=== PATIENT | female | born 1990 | race Caucasian/White ===

== ENCOUNTER 2016-08-27 05:22 | Observation (INO) | payer MEDICAID ==
[2016-08-27] MEDS ORDERED: hydrOXYzine IM 50 MG/ML VIAL IM PRN (05:45)
[2016-08-27] MEDS ORDERED: IV RINGERS,LACTATED 1000ML 1,000 ML IV SCH (06:00)
== END 2016-08-27 07:50 | disposition short-term general hospital (02) ==
LOC: 3 SO LND 05:22
PROVIDERS: ADMIT Obstetrics & Gynecology; ATTEND Obstetrics & Gynecology
DX: O21.2 Late vomiting of pregnancy (principal); O26.892 Other specified pregnancy related conditions, second trimester; R11.0 Nausea; R10.9 Unspecified abdominal pain; Z3A.24 24 weeks gestation of pregnancy
CPT/HCPCS: 96372; G0378; G0379; J3410

== ENCOUNTER 2016-08-27 07:47 | Inpatient (IN) | payer MEDICAID ==
[~2016-08-27] VITALS: Ht 172.7 cm; Wt 65.8 kg
--- NOTE | 2016-08-27 08:23 | PHYS DOC ---
Past Medical History Past Medical History: No Pertinent History Past Surgical History: No Surgical History Alcohol Use: None Drug Use: Heroin, Methadone Social History Narrative: WITHDRAWL Adult General Chief Complaint Chief Complaint: VOMITING IN HPI HPI Patient is a 25 year old female who presents with complaint of nausea, vomiting , abdominal and back pain. Patient states that she has had symptoms for the past 2 days. Patient states that she is withdrawing from heroin. Patient's last use of heroin was 2 days ago. Patient states that she is attempting to quit as she is currently 7 months . Patient is . Patient states that she has been in [place] for the past several months but just moved back 2 days ago. Patient has had no care during her . Patient states that she is having generalized abdominal and back pain which she rates as 7 out of 10. Patient states that this is typical when she has withdrawal symptoms. Patient states that she has been on methadone therapy in the past for treatment. Patient is having uncontrolled nausea and vomiting and has not been able to keep anything solid or liquid down. Patient has taken no medications for her symptoms. The patient initially presented to labor and delivery here [facility] where she was evaluated and had normal heart tones. The patient was referred to the emergency department for further management. Review of Systems Review of Systems Constitutional: Denies fever or chills [] Eyes: Denies change in visual acuity, redness, or eye pain [] HENT: Denies nasal congestion or sore throat [] Respiratory: Denies cough or shortness of breath [] Cardiovascular: Denies chest pain or edema [] GI: Abdominal pain, nausea, vomiting [] : Denies dysuria or hematuria [] Musculoskeletal: Back pain [] Integument: Denies rash or skin lesions [] Neurologic: Denies headache, focal weakness or sensory changes [] Current Medications Current Medications Current Medications Medications (Trade) Dose Ordered Sig/Bhupinder Start Time Stop Time Status Last Admin Dose Admin Clonidine HCl (Catapres) 0.1 mg 1X ONCE 08/27/16 08:30 08/27/16 08:31 DC 08/27/16 08:57 0.1 MG Ondansetron HCl (Zofran) 4 mg PRN Q8HRS PRN 08/27/16 09:45 08/28/16 09:44 UNV Sodium Chloride 1,000 ml @ 150 mls/hr [id number] 08/27/16 09:39 08/28/16 09:38 UNV Allergies Allergies Allergies Coded Allergies Type Severity Reaction Last Updated Verified No Known Drug Allergies 08/27/16 No Physical Exam Physical Exam Constitutional: Alert, afebrile, appears ill. [] HENT: Normocephalic, atraumatic, bilateral external ears normal, oropharynx moist, no oral exudates, nose normal. [] Eyes: PERRLA, EOMI, conjunctiva normal, no discharge. [] Neck: Normal range of motion, no tenderness, supple, no stridor. [] Cardiovascular:Heart rate regular rhythm, no murmur [] Lungs & Thorax: Bilateral breath sounds clear to auscultation [] Abdomen: Bowel sounds normal, soft, nonlocalizing tenderness to palpation in all 4 quadrants, no guarding or rebound tenderness, no masses, no pulsatile masses. [] Skin: Warm, dry, no erythema, no rash. [] Back: No midline tenderness, bilateral paraspinous muscle tenderness to palpation, no flank ecchymosis. [] Extremities: No tenderness, no cyanosis, no clubbing, ROM intact, no edema. [] Neurologic: Alert and oriented X 3, normal motor function, normal sensory function, no focal deficits noted. [] Current Patient Data Vital Signs Vital Signs Date Time Temp Pulse Resp B/P (MAP) Pulse Ox O2 Delivery O2 Flow Rate FiO2 08/27/16 09:00 63 20 122/72 (89) 100 Room Air 08/27/16 07:55 98.4 98.4 Lab Values Laboratory Tests Test 08/27/16 08:25 White Blood Count 14.9 x10^3/uL (4.0-11.0) H Red Blood Count 4.01 x10^6/uL (3.50-5.40) Hemoglobin 12.6 g/dL (12.0-15.5) Hematocrit 37.5 % (36.0-47.0) Mean Corpuscular Volume 94 fL (79-100) Mean Corpuscular Hemoglobin 31 pg (25-35) Mean Corpuscular Hemoglobin Concent 34 g/dL (31-37) Red Cell Distribution Width 13.5 % (11.5-14.5) Platelet Count 287 x10^3/uL (140-400) Neutrophils (%) (Auto) 93 % (31-73) H Lymphocytes (%) (Auto) 5 % (24-48) L Monocytes (%) (Auto) 1 % (0-9) Eosinophils (%) (Auto) 0 % (0-3) Basophils (%) (Auto) 1 % (0-3) Neutrophils # (Auto) 13.9 x10^3uL (1.8-7.7) H Lymphocytes # (Auto) 0.8 x10^3/uL (1.0-4.8) L Monocytes # (Auto) 0.2 x10^3/uL (0.0-1.1) Eosinophils # (Auto) 0.0 x10^3/uL (0.0-0.7) Basophils # (Auto) 0.1 x10^3/uL (0.0-0.2) Platelet Estimate Pending Sodium Level 137 mmol/L (136-145) Potassium Level 3.1 mmol/L (3.5-5.1) L Chloride Level 100 mmol/L (98-107) Carbon Dioxide Level 25 mmol/L (21-32) Anion Gap 12 (6-14) Blood Urea Nitrogen 6 mg/dL (7-20) L Creatinine 0.6 mg/dL (0.6-1.0) Estimated GFR (Cockcroft-Gault) 147.4 BUN/Creatinine Ratio 10 (6-20) Glucose Level 136 mg/dL (70-99) H Calcium Level 8.9 mg/dL (8.5-10.1) Total Bilirubin 0.6 mg/dL (0.2-1.0) Aspartate Amino Transferase (AST) 19 U/L (15-37) Alanine Aminotransferase (ALT) 22 U/L (14-59) Alkaline Phosphatase 84 U/L (46-116) Total Protein 7.4 g/dL (6.4-8.2) Albumin 3.1 g/dL (3.4-5.0) L Albumin/Globulin Ratio 0.7 (1.0-1.7) L Laboratory Tests 08/27/16 08:25 Laboratory Tests 08/27/16 08:25 EKG EKG Rhythm strip interpretation by me: Heart rate 69, sinus rhythm, no ectopy Radiology/Procedures Radiology/Procedures Not performed [] Course & Med Decision Making Course & Med Decision Making Pertinent Labs and Imaging studies reviewed. (See chart for details) Patient was given clonidine, Zofran, and IV fluids. On reevaluation, patient states her symptoms have not improved and patient is unable to tolerate any oral intake at this time. Due to current condition, the patient will need treatment with IV fluids for rehydration and continued symptomatic control. I spoke with Dr. Hensley of [facility] who agreed to admit patient under observation status for continued IV fluids and symptomatic control. I also consulted Dr. Garcia of internal medicine who agreed to evaluate patient in hospital to assess for need for methadone treatment. Dragon Disclaimer Dragon Disclaimer This electronic medical record was generated, in whole or in part, using a voice recognition dictation system. Departure Departure Impression: Primary Impression: Intractable nausea and vomiting Disposition: ADMITTED INPATIENT Admitting Physician: Other Condition: STABLE Referrals: NO PCP (PCP) Problem Qualifiers Primary Impression: Intractable nausea and vomiting Vomiting type: unspecified Qualified Codes: R11.2 - Nausea with vomiting, unspecified TG MONTES MD August 27, 2016 08:23
[2016-08-27] MEDS ORDERED: cloNIDine HCL 0.1 MG TABLET PO ONE (08:30)
[2016-08-27] MEDS ORDERED: IV NORMAL SALINE 1000ML BAG 1,000 ML IV SCH ×2 (08:30→10:00)
[2016-08-27] MEDS ORDERED: ONDANSETRON PF 4 MG/2 ML VIAL. IV ONE (08:30)
[2016-08-27 08:35] LABS: BASO # 0.1 x10^3/uL (0.0-0.2); BASO % 1 % (0-3); EOS % 0 % (0-3); HEMATOCRIT 37.5 % (36.0-47.0); HEMOGLOBIN 12.6 g/dL (12.0-15.5); LYMPH # 0.8 x10^3/uL (1.0-4.8); LYMPH % 5 % (24-48); MEAN CORPUSCULAR HEMOGLOBIN 31 pg (25-35); MEAN CORPUSCULAR HGB CONC 34 g/dL (31-37); MEAN CORPUSCULAR VOLUME 94 fL (79-100); MONO % 1 % (0-9); NEUT % 93 % (31-73); PLATELET COUNT 287 x10^3/uL (140-400); RED BLOOD COUNT 4.01 x10^6/uL (3.50-5.40); RED CELL DISTRIBUTION WIDTH 13.5 % (11.5-14.5); WHITE BLOOD COUNT 14.9 x10^3/uL (4.0-11.0)
[2016-08-27 08:44] LABS: CALCIUM 8.9 mg/dL (8.5-10.1); CREATININE 0.6 mg/dL (0.6-1.0); GFR 147.4; POTASSIUM 3.1 mmol/L (3.5-5.1)
[2016-08-27 08:50] LABS: ALBUMIN 3.1 g/dL (3.4-5.0); ALBUMIN/GLOBULIN RATIO 0.7 (1.0-1.7); TOTAL BILIRUBIN 0.6 mg/dL (0.2-1.0); TOTAL PROTEIN 7.4 g/dL (6.4-8.2)
[2016-08-27] MEDS ORDERED: ONDANSETRON PF 4 MG/2 ML VIAL. IV PRN (09:45)
[2016-08-27 09:58] LABS: PLT ESTIMATE ADEQUATE (ADEQUATE)
[2016-08-27] MEDS ORDERED: METHADONE 10 MG TABLET. PO SCH (10:00)
--- NOTE | 2016-08-27 10:14 | ACF ---
Admission Forms Criteria VOMITING Clinical Indications for Admission to Inpatient Care ( Place 'X' for any and all applicable criteria): Admission is indicated for 1 or more of the following(1)(2)(3): [ ]I. Complete or partial gastrointestinal obstruction [ ]II. Vomiting due to significant metabolic derangement (eg, severe hypercalcemia, diabetic ketoacidosis) [ ]III. Other cause of vomiting requiring hospitalization (eg, poisoning, increased intracranial pressure) [X]IV. Inpatient admission required rather than observation care because of 1 or more of the following [ ]i) Hemodynamic instability [X]ii) Vomiting that is severe or persistent indicated by 1 or more of the following 1) Numerous episodes of vomiting in past 24hours (eg, every 1 to 2 hours) 2) Suggests severe underlying cause or complication (eg , projectile, feculent, bilious, coffee ground, bloody) 3) Appropriate antiemetic treatment (eg, repeated oral or parenteral dosing) does not sufficiently reduce vomiting within 12 to 24 hours of treatment X 4) Treatment regimen necessary to adequately control vomiting requires inpatient level of care (eg, not immediately available in outpatient setting) [ ]iii) Severe electrolyte abnormalities requiring inpatient care [ ]iv) Severe pain requiring acute inpatient management( Continuous or frequent (eg, every 2 to 4 hours) parental analgesics or analgesic regimen that can only be performed or initiated in inpatient setting) [ ]v) High fever or infection requiring inpatient admission as indicated by 1 or more of the following(7)(8): [ ]1) Appropriate outpatient or observation care antimicrobial treatment unavailable, not effective, or not feasible [ ]2) Documented bacteremia [ ]3) Temp >104.9 degrees F (40.5 degrees C) (oral) [ ]4) Temp >103.1 degrees F (39.5 C) (oral) or <96.8 degrees F (36 C) (rectal) that does not respond to all emergency treatment measures [ ]vi) Acute renal failure [ ]vii) IV fluid required rather than oral rehydration to replace significant on going losses (greater than 3 L/m2 per day) [ ]viii) Parenteral nutrition regimen that must be implemented on inpatient basis [ ]ix) Other condition, treatment or monitoring requiring inpatient admission Extended stay beyond goal length of stay may be needed for(1)(4): [ ]a) Severe vomiting [ ]b) Persistent vomiting, vital sign changes, severe electrolyte imbalance , or diagnosed cause of vomiting that requires continued hospitalization (eg, gastrointestinal obstruction , increased intracranial pressure) [ ]c) Surgery to treat identified causes of vomiting (eg, bowel obstruction , intracranial process) [ ]d) Comorbid illness that requires inpatient care (eg, acute heart failure , renal failure) [ ]e) Need for inpatient endoscopy The original [employer] content created by [employer] has been revised. The portions of the content which have been revised are identified through the use of italic text or in bold, and [facility] has neither reviewed nor approved the modified material. All other unmodified content is copyright [employer]. Please see references footnoted in the original [employer] edition 2016 Admission Criteria Met?: Yes LIAM LEWIS August 27, 2016 10:14
[2016-08-27] MEDS: IV DEXTROSE 5%-LACT RINGERS 1,000 ML IV SCH ×2 (11:20→19:25)
[2016-08-27] MEDS ORDERED: POTASSIUM CHLORIDE 20 MEQ TABLET.ER. PO ONE (11:30)
--- NOTE | 2016-08-27 12:13 | CONS ---
DATE OF CONSULTATION: 08/27/2016 CHIEF COMPLAINT: 1. Heroin withdrawal. 2. A 24-week . HISTORY OF PRESENT ILLNESS: The patient is a pleasant 25-year-old relatively healthy lady, who apparently lives in a hotel with her boyfriend. She is addicted to heroin. She states that she last used heroin a couple of days ago. She apparently just ____ got out of intermediate as well. Basically, she was in our Emergency Room with severe withdrawal. She is vomiting. She is depressed, shaking, and just appears very sick. I have discussed the case with the ER physician. Apparently, Dr. Ward is going to admit the patient. We are going to consult her to assist with this withdrawal situation. I did however call the pharmacy several times, who has agreed on a dose of 20 mg p.o. b.i.d. because the patient has been on that in the past from a Meth[facility]one Clinic. After that, I am going to go ahead and consult Dr. Clyde Awan [facility] to help us with this difficult situation. PAST MEDICAL HISTORY: Heroin abuse. ALLERGIES: None. FAMILY HISTORY: Hypertension. SOCIAL HISTORY: She lives at a hotel with her boyfriend. She smokes. I do not think she drinks much, but she is addicted to heroin. MEDICATIONS: Reviewed, please see the MRAD. REVIEW OF SYSTEMS: GENERAL: No history of weight change, weakness or fevers. SKIN: No bruising, hair changes or rashes. EYES: No blurred, double or loss of vision. NOSE AND THROAT: No history of nosebleeds, hoarseness or sore throat. HEART: No history of palpitations, chest pain or shortness of breath on exertion. LUNGS: Denies cough, hemoptysis, wheezing or shortness of breath. GASTROINTESTINAL: She complains of abdominal pain and nausea. GENITOURINARY: No history of frequency, urgency, hesitancy or nocturia. NEUROLOGIC: Denies history of numbness, tingling, tremor or weakness. PSYCHIATRIC: No history of panic or anxiety. She complains of depression. ENDOCRINE: No history of heat or cold intolerance, polyuria or polydipsia. EXTREMITIES: Denies muscle weakness, joint pain, pain on walking or stiffness. PHYSICAL EXAMINATION: VITAL SIGNS: Temperature afebrile at 98.4, pulse 66, respirations 16, blood pressure 113/59, and O2 sat 99%. GENERAL: She is awake. She is lying on her right side. I can barely see her face - her hair is over her face. She has drainage from her nose, and the mouth - there is a bucket of emesis on the floor. She appears quite ill. HEART: Distant S1, S2, a little tachycardic at 100 beats per minute. LUNGS: Clear. ABDOMEN: Soft. Decreased bowel sounds, tender. EXTREMITIES: No obvious edema. ENDOCRINE: No thyromegaly. LYMPHATICS: No cervical nodes. HEMATOPOIETIC: No obvious bruising. SKIN: She has got multiple tattoos. GENITOURINARY: Deferred at this time. LABORATORY DATA: White count 15, hemoglobin 12, and platelets 287. Electrolytes: Sodium 137, potassium 3.1, chloride 100, bicarbonate 25, BUN 6, creatinine 0.6, glucose 136, and albumin 3.1. ASSESSMENT AND PLAN: Severe heroin withdrawal with an incidental finding of leukocytosis and hypokalemia. The patient has been admitted. We are consulting Dr. Clyde Awan as well to assist with pain management. For now, I am starting Methadone 20 mg p.o. b.i.d. to get her through this acute phase. Pharmacy has been notified. They are on their way up to give her a dose. Dr. Ward is going to manage the obstetrical issues and . PROGNOSIS: Guarded both for the patient and for the baby. I have counseled the patient about her heroin use and generalized drug abuse while and that she should stop after we taper her off this. We will repeat labs tomorrow. She will need IV antibiotics and potassium replacement. I have discussed the case with the nurse as well. NITHYA FRANCIS DO DR: DARIUS/harlan JOB#: [id number] / [id number]
[2016-08-27 13:07] LABS: BILIRUBIN,URINE NEGATIVE (NEG); GLUCOSE,URINE 100 mg/dL (NEG); NITRITE,URINE NEGATIVE (NEG); PROTEIN,URINE NEGATIVE (NEG-TRACE)
[2016-08-27 13:21] LABS: RBC,URINE 0 /HPF (0-2)
[2016-08-27 13:23] LABS: BACTERIA,URINE FEW /HPF (0-FEW); SQUAMOUS EPITHELIAL CELL,UR MANY /LPF
[2016-08-27 13:24] LABS: TRICHOMONAS,URINE PRESENT
[2016-08-27] MEDS: ONDANSETRON PF 4 MG/2 ML VIAL. IV SCH ×3 (13:30→20:33)
[2016-08-27 13:31] LABS: BARBITURATES NEG (NEG); BENZODIAZEPINES NEG (NEG); CANNABINOIDS POS (NEG); COCAINE NEG (NEG); METHADONE POS (NEG); OPIATES POS (NEG); PHENCYCLIDINE NEG (NEG)
--- NOTE | 2016-08-27 14:18 | PDOC ---
SUBJECTIVE Subjective 25 yrs old lady EDC 12/29/16 Here for Cramps in abdomen No fever No vaginal bleeding Drug Abuse and suffering form Withdrawal symptoms OBJECTIVE Objective Vital signs stable No fever Hb 12.6 No vaginal bleeding Vital Signs Vital Signs Date Time Temp Pulse Resp B/P (MAP) Pulse Ox O2 Delivery O2 Flow Rate FiO2 08/27/16 12:04 98.3 98.3 08/27/16 09:00 63 20 122/72 (89) 100 Room Air 08/27/16 08:57 67 122/72 08/27/16 07:55 98.4 66 16 113/59 (77) 99 Room Air 98.4 PHYSICAL EXAM Physical Exam Abdomen soft Patient sleepy Heart tones are 140/minute ASSESSMENT/PLAN Assessment/Plan Will start her on IV fluids and Antiemetics Pt is on K tabs po When Pt is stable and feeling better will refer her to Pain Clinics Wait for Dr Tucker Recommendation as well. Problems: COMMENT Lab Laboratory Tests Test 08/27/16 08:25 08/27/16 12:54 White Blood Count 14.9 x10^3/uL (4.0-11.0) Red Blood Count 4.01 x10^6/uL (3.50-5.40) Hemoglobin 12.6 g/dL (12.0-15.5) Hematocrit 37.5 % (36.0-47.0) Mean Corpuscular Volume 94 fL (79-100) Mean Corpuscular Hemoglobin 31 pg (25-35) Mean Corpuscular Hemoglobin Concent 34 g/dL (31-37) Red Cell Distribution Width 13.5 % (11.5-14.5) Platelet Count 287 x10^3/uL (140-400) Neutrophils (%) (Auto) 93 % (31-73) Lymphocytes (%) (Auto) 5 % (24-48) Monocytes (%) (Auto) 1 % (0-9) Eosinophils (%) (Auto) 0 % (0-3) Basophils (%) (Auto) 1 % (0-3) Neutrophils # (Auto) 13.9 x10^3uL (1.8-7.7) Lymphocytes # (Auto) 0.8 x10^3/uL (1.0-4.8) Monocytes # (Auto) 0.2 x10^3/uL (0.0-1.1) Eosinophils # (Auto) 0.0 x10^3/uL (0.0-0.7) Basophils # (Auto) 0.1 x10^3/uL (0.0-0.2) Segmented Neutrophils % 92 % (35-66) Band Neutrophils % 3 % (0-9) Lymphocytes % 2 % (24-48) Monocytes % 3 % (0-10) Platelet Estimate Adequate (ADEQUATE) Sodium Level 137 mmol/L (136-145) Potassium Level 3.1 mmol/L (3.5-5.1) Chloride Level 100 mmol/L (98-107) Carbon Dioxide Level 25 mmol/L (21-32) Anion Gap 12 (6-14) Blood Urea Nitrogen 6 mg/dL (7-20) Creatinine 0.6 mg/dL (0.6-1.0) Estimated GFR (Cockcroft-Gault) 147.4 BUN/Creatinine Ratio 10 (6-20) Glucose Level 136 mg/dL (70-99) Calcium Level 8.9 mg/dL (8.5-10.1) Total Bilirubin 0.6 mg/dL (0.2-1.0) Aspartate Amino Transf (AST/SGOT) 19 U/L (15-37) Alanine Aminotransferase (ALT/SGPT) 22 U/L (14-59) Alkaline Phosphatase 84 U/L (46-116) Total Protein 7.4 g/dL (6.4-8.2) Albumin 3.1 g/dL (3.4-5.0) Albumin/Globulin Ratio 0.7 (1.0-1.7) Urine Collection Type Unknown Urine Color Lexi Urine Clarity Clear Urine pH 6.0 Urine Specific [place] 1.025 Urine Protein Negative mg/dL (NEG-TRACE) Urine Glucose (UA) 100 mg/dL (NEG) Urine Ketones (Stick) 15 mg/dL (NEG) Urine Blood Negative (NEG) Urine Nitrite Negative (NEG) Urine Bilirubin Negative (NEG) Urine Urobilinogen Dipstick 1.0 mg/dL (0.2 mg/dL) Urine Leukocyte Esterase Moderate (NEG) Urine RBC 0 /HPF (0-2) Urine WBC 11-20 /HPF (0-4) Urine Squamous Epithelial Cells Many /LPF Urine Bacteria Few /HPF (0-FEW) Urine Mucus Marked /LPF Urine Trichomonas Present Urine Opiates Screen Pos (NEG) Urine Methadone Screen Pos (NEG) Urine Barbiturates Neg (NEG) Urine Phencyclidine Screen Neg (NEG) Urine Amphetamine/Methamphetamine Neg (NEG) Urine Benzodiazepines Screen Neg (NEG) Urine Cocaine Screen Neg (NEG) Urine Cannabinoids Screen Pos (NEG) Urine Ethyl Alcohol Neg (NEG) NIC FIGUEROA MD August 27, 2016 14:18
[2016-08-27] MEDS ORDERED: METHADONE 10 MG TABLET. PO ONE (15:00)
[2016-08-27 20:40] VITALS: BP 106/59
[2016-08-27] MEDS: metroNIDAZOLE 500 MG TABLET PO SCH (20:54)
[2016-08-27] MEDS: METHADONE 10 MG TABLET. PO SCH (20:55)
[2016-08-27] MEDS ORDERED: metroNIDAZOLE 0.75% VAGINAL 1 APP TUBE VG SCH (21:00)
[2016-08-28 00:35] VITALS: BP 103/55
[2016-08-28] MEDS: ONDANSETRON PF 4 MG/2 ML VIAL. IV SCH ×3 (00:43→09:03)
[2016-08-28] MEDS: IV DEXTROSE 5%-LACT RINGERS 1,000 ML IV SCH (03:47)
[2016-08-28] MEDS: metroNIDAZOLE 500 MG TABLET PO SCH (05:19)
[2016-08-28 05:27] VITALS: BP 102/66
[2016-08-28 05:31] LABS: BASO % 0 % (0-3); EOS % 0 % (0-3); HEMOGLOBIN 11.5 g/dL (12.0-15.5); LYMPH # 2.1 x10^3/uL (1.0-4.8); LYMPH % 16 % (24-48); MEAN CORPUSCULAR HEMOGLOBIN 32 pg (25-35); MEAN CORPUSCULAR HGB CONC 35 g/dL (31-37); MEAN CORPUSCULAR VOLUME 92 fL (79-100); MONO % 7 % (0-9); NEUT % 76 % (31-73); PLATELET COUNT 250 x10^3/uL (140-400); RED BLOOD COUNT 3.57 x10^6/uL (3.50-5.40); RED CELL DISTRIBUTION WIDTH 13.7 % (11.5-14.5); WHITE BLOOD COUNT 12.8 x10^3/uL (4.0-11.0)
[2016-08-28 06:00] LABS: ALBUMIN 2.6 g/dL (3.4-5.0); ALBUMIN/GLOBULIN RATIO 0.7 (1.0-1.7); CALCIUM 8.5 mg/dL (8.5-10.1); CREATININE 0.5 mg/dL (0.6-1.0); GFR 150.3; TOTAL BILIRUBIN 0.4 mg/dL (0.2-1.0); TOTAL PROTEIN 6.1 g/dL (6.4-8.2)
[2016-08-28 08:20] VITALS: BP 107/58
[2016-08-28] MEDS: METHADONE 10 MG TABLET. PO SCH (09:04)
--- NOTE | 2016-08-28 11:53 | RAD ---
Examination: Obstetric ultrasound limited History: History of no care, size and dates Comparison: None available Findings: Single living intrauterine identified with heart rate of 126 bpm. Biparietal diameter measures 5.07 cm corresponding to 21 weeks and 3 days +/- 12 days Head circumference be in 19.18 cm corresponding to 21 weeks and 3 days +/- 10 days Abdominal circumference measures 17.92 cm corresponding to 22 weeks and 6 days +/- 14 days Femur length measures 3.8 cm corresponding to 22 weeks and 1 day +/- 13 days Head circumference to abdominal circumference ratio 1.07 History weight 497 g Gestational age is 22 weeks and 0 days. Date of delivery by this ultrasound 01/01/2017 Presentation is breech movement is seen Cervical length is 5 cm Placenta grade grade 0 Placental location anterior wall. Impression: Single living intrauterine with heart rate of 126 bpm.
[2016-08-28] MEDS ORDERED: POTASSIUM CHLORIDE 20 MEQ in IV 1/2 NORMAL SALINE 1,000 ML IV SCH (13:00)
[2016-08-28] MEDS ORDERED: POTASSIUM CL 20MEQ-0.45% NACL 1,000 ML IV SCH (13:45)
--- NOTE | 2016-08-28 17:19 | PDOC ---
PROGRESS NOTES Chief Complaint Chief Complaint NOTE: late entry; pt seen at noon. CC: heroin addiction in 2nd trimester ASSESSMENT AND PLAN: 1. Heroin addiction: long standing. has tried to come off in the past and reports using 60 mg methadone daily from methadone clinic in [place].now here with (addicted) boyfriend to try and come clean again. recommend 60 mg methadone daily (add.l 20 mg tonight). for addiction, methadone is given once a day rather than in divided doses. start 60 mg in AM. needs methadone clinic. obtain SW consult 2. intractable nausea: Zofran 8q8h PRN, alternating with compazine 10q8 as needed 3. Trichomonas: flagyl 2g once or 500 mg bid for 7 days. latter may be better with nausea sx, but former is a single dose... History of Present Illness History of Present Illness nausea improved. no abd pain. some BENJAMIN Vitals Vitals Vital Signs Date Time Temp Pulse Resp B/P (MAP) Pulse Ox O2 Delivery O2 Flow Rate FiO2 08/28/16 08:22 Room Air 08/28/16 08:20 76 18 107/58 (74) 98 08/28/16 05:27 98.1 98.1 Physical Exam General: Alert, Cooperative, No acute distress Heart: Regular rate Lungs: Clear Abdomen: Normal bowel sounds, Other (gravid) Extremities: No edema Skin: No rashes Labs LABS Laboratory Tests Test 08/28/16 05:27 White Blood Count 12.8 x10^3/uL (4.0-11.0) Red Blood Count 3.57 x10^6/uL (3.50-5.40) Hemoglobin 11.5 g/dL (12.0-15.5) Hematocrit 33.0 % (36.0-47.0) Mean Corpuscular Volume 92 fL (79-100) Mean Corpuscular Hemoglobin 32 pg (25-35) Mean Corpuscular Hemoglobin Concent 35 g/dL (31-37) Red Cell Distribution Width 13.7 % (11.5-14.5) Platelet Count 250 x10^3/uL (140-400) Neutrophils (%) (Auto) 76 % (31-73) Lymphocytes (%) (Auto) 16 % (24-48) Monocytes (%) (Auto) 7 % (0-9) Eosinophils (%) (Auto) 0 % (0-3) Basophils (%) (Auto) 0 % (0-3) Neutrophils # (Auto) 9.7 x10^3uL (1.8-7.7) Lymphocytes # (Auto) 2.1 x10^3/uL (1.0-4.8) Monocytes # (Auto) 0.9 x10^3/uL (0.0-1.1) Eosinophils # (Auto) 0.0 x10^3/uL (0.0-0.7) Basophils # (Auto) 0.0 x10^3/uL (0.0-0.2) Sodium Level 135 mmol/L (136-145) Potassium Level 4.0 mmol/L (3.5-5.1) Chloride Level 102 mmol/L (98-107) Carbon Dioxide Level 23 mmol/L (21-32) Anion Gap 10 (6-14) Blood Urea Nitrogen 6 mg/dL (7-20) Creatinine 0.5 mg/dL (0.6-1.0) Estimated GFR (Cockcroft-Gault) 150.3 BUN/Creatinine Ratio 12 (6-20) Glucose Level 105 mg/dL (70-99) Calcium Level 8.5 mg/dL (8.5-10.1) Total Bilirubin 0.4 mg/dL (0.2-1.0) Aspartate Amino Transf (AST/SGOT) 23 U/L (15-37) Alanine Aminotransferase (ALT/SGPT) 27 U/L (14-59) Alkaline Phosphatase 64 U/L (46-116) Total Protein 6.1 g/dL (6.4-8.2) Albumin 2.6 g/dL (3.4-5.0) Albumin/Globulin Ratio 0.7 (1.0-1.7) SYDNEY OLMOS MD August 28, 2016 17:19
[2016-08-28] MEDS ORDERED: metroNIDAZOLE 500 MG TABLET PO SCH (21:00)
[2016-08-28] MEDS ORDERED: METHADONE 10 MG TABLET. PO SCH (21:00)
[2016-08-30 06:20] LABS: RPR REFLEX Non Reactive (Non Reactive)
== END 2016-08-28 15:40 | disposition home or self-care (01) | DRG 781 ==
LOC: ER 09:32 → 3 SO LND 09:55
PROVIDERS: ADMIT Obstetrics & Gynecology; ATTEND Obstetrics & Gynecology
DX: O99.322 Drug use complicating pregnancy, second trimester (principal); F11.23 Opioid dependence with withdrawal; D72.829 Elevated white blood cell count, unspecified; O99.332 Smoking (tobacco) complicating pregnancy, second trimester; E87.6 Hypokalemia; O99.342 Other mental disorders complicating pregnancy, second trimester; F32.9 Major depressive disorder, single episode, unspecified; Z82.49 Family history of ischemic heart disease and other diseases of the circulatory system; Z3A.24 24 weeks gestation of pregnancy; A59.9 Trichomoniasis, unspecified
CPT/HCPCS: 36415; 76815; 80053; 81001; 85007; 85027; 86593; 86703; 86762; 86850; 86900; 86901; 87086; 87340; 87341; 96361; 96372; 96374; G0378; G0379; G0481; J0696; J2405; J3410; J7030; 99285-25